=== PATIENT | female | born 1955 | race Caucasian/White ===

== ENCOUNTER 2020-04-10 08:45 | Inpatient (IN) ==
[2020-04-24] MEDS ORDERED: Metoprolol Tartrate 5 mg VIAL 5 ml VIAL (1 mg/ml) IV SCH
[2020-04-24] MEDS ORDERED: HYDROmorphone 1 MG/1 ML SYRINGE IV SCH
[2020-04-24] MEDS ORDERED: Midazolam 2 mg/2 ml VIAL 1 mg/ml 2 ml VIAL (2 mg) IV SLOW PU SCH
[2020-04-24] MEDS ORDERED: Ondansetron 4 mg VIAL 2 MG/ML 2 ml VIAL IV SCH ×2
[2020-04-24] MEDS ORDERED: Succinylcholine 200 mg VIAL 20 mg/ml 10 ml VIAL (200 mg) IV SCH
[2020-04-24] MEDS ORDERED: fentaNYL 100 mcg/2 ml 50 MCG/ML VIAL IV SCH
[2020-04-24] MEDS ORDERED: Metoclopramide 5 MG/ML VIAL (10 mg) IV SCH
[2020-04-24] MEDS ORDERED: Acetaminophen IV 1 GM/100ML 100 ML IVPB SCH
[2020-04-24] MEDS ORDERED: Rocuronium 50 mg VIAL 10 mg/ml 5 ml VIAL (50 mg) IV SCH
[2020-04-24] MEDS ORDERED: fentaNYL 250 mcg/5 ml 50 MCG/ML 5 ml VIAL (250 MCG) IV SCH
[2020-04-24] MEDS ORDERED: Sugammadex 500 MG/5 ML 5 ml VIAL IV PUSH SCH
[2020-04-24] MEDS ORDERED: DiMENhydriNATE IV 50 mg/ml 1 ml VIAL IV PUSH SCH
[2020-04-24] MEDS ORDERED: EPHEDrine (Pressors) 50 MG/ML VIAL IV PUSH SCH
[2020-04-24] MEDS ORDERED: Propofol 10 MG/ML 20 ML BTL IV SCH
[2020-04-24] MEDS ORDERED: EPHEDrine (Pressors) 50 MG/ML VIAL IV SLOW PU SCH
[2020-04-24] MEDS ORDERED: Lidocaine 2% PF 5 ML VIAL IV SCH
[2020-04-24] MEDS ORDERED: Dexamethasone IV 4 MG/ML VIAL 1 ml VIAL IV SLOW PU ONE (06:00)
[2020-04-24] MEDS ORDERED: Lactated Ringers 1000 ml BAG 1,000 ML IV SCH (06:00)
[2020-04-24] MEDS ORDERED: Famotidine IV 10 MG/ML 2 ml VIAL (20 mg) IV ONE (06:00)
[2020-04-24] MEDS ORDERED: Buffered Lidocaine 1% SYRIN 1 ml INTRADERM ONE ×2 (06:00→06:46)
[2020-04-24] MEDS ORDERED: Dexamethasone IV 4 MG/ML VIAL 1 ml VIAL ONE (06:46)
[2020-04-24] MEDS ORDERED: ceFAZolin 1 GM ADVAN 1 GM ADDV.VIAL IVPB ONE (06:46)
[2020-04-24] MEDS ORDERED: Heparin 5000 UNITS/ML 1 mL VIAL ONE (06:46)
[2020-04-24] MEDS ORDERED: ceFAZolin 2 GM PREMIX 2 GM/50 ML BAG ONE (06:46)
[2020-04-24] MEDS ORDERED: Famotidine IV 10 MG/ML 2 ml VIAL (20 mg) ONE (06:46)
[2020-04-24] MEDS ORDERED: Scopolamine PATCH Remove NOTE PATCH OFF SCH (08:00)
[2020-04-24] MEDS ORDERED: HYDROcodone/ACET. 7.5/325 LIQ 15 ML UDC PO PRN (09:29)
[2020-04-24] MEDS ORDERED: Ondansetron 4 mg VIAL 2 MG/ML 2 ml VIAL IV PRN ×2 (09:29→09:34)
[2020-04-24] MEDS ORDERED: DiMENhydriNATE IV 50 mg/ml 1 ml VIAL IV PUSH PRN (09:34)
[2020-04-24] MEDS ORDERED: Naloxone 0.4 mg VIAL 0.4 mg/ml 1 ml VIAL IV PRN (09:34)
[2020-04-24] MEDS ORDERED: Promethazine INJ(RESTRICTED) 25 MG/ML 1 ml VIAL IV PRN (09:58)
[2020-04-24] MEDS: fentaNYL 100 mcg/2 ml 50 MCG/ML VIAL IV PRN ×4 (09:59→10:48)
[2020-04-24] MEDS ORDERED: NS 0.9% IVPB PRN ×2 (10:08→10:15)
[2020-04-24] MEDS ORDERED: PROMETHAZINE IVPB PRN ×2 (10:08→10:15)
[2020-04-24] MEDS: HYDROmorphone 1 MG/1 ML SYRINGE IV PRN ×5 (10:57→11:48)
[2020-04-24] MEDS ORDERED: Metoprolol Tartrate 5 mg VIAL 5 ml VIAL (1 mg/ml) IV ONE (11:51)
[2020-04-24] MEDS: Lactated Ringers 1000 ml BAG 1,000 ML IV SCH ×2 (12:30→19:25)
[2020-04-24] MEDS: HYDROmorphone 0.5 MG/0.5 ML SYRINGE IV SLOW PU PRN ×2 (14:47→21:48)
[2020-04-24] MEDS ORDERED: Prochlorperazine 5 mg/ml 2 ml VIAL (10 mg) IV PRN (16:52)
[2020-04-24] MEDS: Heparin 5000 UNITS/ML 1 mL VIAL SUBCUT SCH ×2 (18:35→21:50)
[2020-04-25] MEDS: Lactated Ringers 1000 ml BAG 1,000 ML IV SCH ×2 (02:10→09:02)
[2020-04-25] MEDS: Heparin 5000 UNITS/ML 1 mL VIAL SUBCUT SCH ×2 (05:47→14:46)
[2020-04-25] MEDS ORDERED: Heparin 5000 UNITS/ML 1 mL VIAL SUBCUT SCH (06:00)
[2020-04-25] MEDS ORDERED: Pneumococcal Vac 23-Polyvalent IM ONE (09:00)
[2020-04-25] MEDS: HYDROmorphone 0.5 MG/0.5 ML SYRINGE IV SLOW PU PRN (09:47)
[2020-04-25] MEDS ORDERED: D5W 1/2 NS KCl 20 meq 1000 ml 1,000 ML IV SCH (10:00)
[2020-04-25 16:19] VITALS: BP 153/71
== END 2020-04-25 18:20 | disposition home or self-care (01) | DRG 621 ==
LOC: AA 04-24 06:03 → SSU 04-24 09:29
PROVIDERS: ADMIT Surgery; ATTEND Surgery